=== PATIENT | male | born 1950 | race Caucasian/White ===

== ENCOUNTER 2017-07-03 13:22 | Outpatient (CLI) | payer MEDICARE ==
--- NOTE | 2017-07-03 14:24 | RAD ---
CHEST TWO VIEWS: History: Cough. Comparison: Chest one view, 2009. FINDINGS: Lungs are clear. No pneumothorax or effusion. Cardiac silhouette and mediastinal contours within norm al limits. There is a nodular density seen in the right lower lobe on both the PA and lateral radiograph, likely a granuloma. IMPRESSION: 1. No acute intrathoracic abnormality. 2. Nodular density which was seen on the PA and lateral radiograph in the right lower lobe, likely a calcified granuloma. Follow up radiograph in six months would be helpful. POS: [facility]
== END 2017-07-03 13:23 | disposition home or self-care (01) ==
LOC: NAV ERS 13:22
PROVIDERS: ATTEND Family Medicine
DX: J20.9 Acute bronchitis, unspecified (principal); J98.4 Other disorders of lung
CPT/HCPCS: 71020

== ENCOUNTER 2022-08-22 10:36 | Emergency (ER) | payer MEDICARE, OTHER, SELFPAY ==
[2022-08-22] MEDS ORDERED: Sodium Chloride 0.9% 500 ML ONE ×2 (11:45→13:39)
[2022-08-22 11:51] LABS: #Basophils 0.1 thou/uL (0.0-0.2); #Lymphocytes 2.2 thou/uL (1.20-3.40); #Monocytes 0.8 thou/uL (0.11-0.59); #Neutrophils 4.1 thou/uL (1.40-6.50); %Basophils 1.2 % (0.0-1.0); %Eosinophils 0.5 % (0.0-10.0); %Lymphocytes 30.9 % (21.0-51.0); %Neutrophils 56.4 % (42.0-75.0); Hemoglobin 14.5 g/dL (14.0-18.0); Mean Corpuscular HGB CONC 33.8 g/dL (32.0-36.0); Mean Corpuscular Hemoglobin 29.6 pg (27.0-31.0); Mean Corpuscular Volume 87.6 fl (78.0-98.0); Mean Platelet Volume 6.3 fL (7.4-10.4); Platelet Count 179 10x3/uL (130-400); RBC Distribution Width 12.9 % (11.5-14.5); Red Blood Cell (RBC) Count 4.92 mill/uL (4.70-6.10); White Blood Cell (WBC) Count 7.2 10x3/uL (4.8-10.8)
[2022-08-22 12:00] LABS: ALT (SGPT) 87 U/L (8-55); AST (SGOT) 90 U/L (5-34); Albumin 4.5 g/dL (3.4-4.8); Alkaline Phosphatase 41 U/L (40-110); Anion Gap 18 mmol/L (10-20); BUN (Urea Nitrogen) 23 mg/dL (8.4-25.7); Bilirubin, Total 0.8 mg/dL (0.2-1.2); Calc. Creatinine Clearance 0 mL/min (70-130); Calcium 9.2 mg/dL (7.8-10.44); Carbon Dioxide 25 mmol/L (23-31); Chloride 94 mmol/L (98-107); Estimated GFR 48; Globulin 3.6 g/dL (2.4-3.5); Glucose 119 mg/dL (80-115); Potassium 3.6 mmol/L (3.5-5.1); Protein, Total 8.1 g/dL (5.8-8.1); Sodium 133 mmol/L (136-145)
[2022-08-22 12:38] LABS: Phosphorus 3.2 mg/dL (2.3-4.7)
[2022-08-22 13:06] LABS: Magnesium 1.8 mg/dL (1.6-2.6)
[2022-08-22 13:18] LABS: Bilirubin Negative (Negative); Blood, Urine Moderate (Negative); Clarity Clear (Clear); Glucose, Urine (Dipstick) Negative (Negative); Ketone, Urine Negative (Negative); Leukocyte Negative (Negative); Nitrite Negative (Negative); Protein, Urine (Dipstick) Negative (Neg-Trace); Urobilinogen 0.2 mg/dL (Less than 2); pH, Urine 5.5 (5.0-9.0)
[2022-08-22 13:19] LABS: Specific Gravity, Urine 1.025 (1.002-1.036)
[2022-08-22 13:27] LABS: Bacteria/HPF None Seen HPF (None Seen); RBC/HPF None Seen HPF (0-3); Squamous Epithelial None Seen HPF (0-3); WBC/HPF None Seen HPF (0-3)
== END 2022-08-22 14:44 | disposition home or self-care (01) ==
LOC: NAV ERS 10:36
DX: E86.0 Dehydration (principal); M62.81 Muscle weakness (generalized); E78.5 Hyperlipidemia, unspecified; I10 Essential (primary) hypertension; Z87.891 Personal history of nicotine dependence; Z79.899 Other long term (current) drug therapy
CPT/HCPCS: 70450; 71045; 80053; 81003; 81015; 83735; 84100; 84443; 84484; 85025; 93005; J7030